=== PATIENT | male | born 1990 | race Caucasian/White ===

== ENCOUNTER → 2024-06-02 06:51 | Outpatient (REF) | payer OTHER, SELFPAY | LOC: RAD 06:51 | PROVIDERS: ATTENDING PHYSICIAN Nurse Practitioner Family; FAMILY PHYSICIAN Family Medicine | DX: R10.32 Left lower quadrant pain (principal); Z98.890 Other specified postprocedural states | CPT/HCPCS: 76882 ==

== ENCOUNTER → 2024-11-27 10:04 | Outpatient (REF) | payer OTHER, SELFPAY | LOC: RAD 10:04 | PROVIDERS: ATTENDING PHYSICIAN Internal Medicine Rheumatology; FAMILY PHYSICIAN Family Medicine | DX: L40.52 Psoriatic arthritis mutilans (principal); M54.50 Low back pain, unspecified; M79.641 Pain in right hand; M79.642 Pain in left hand | CPT/HCPCS: 72110; 72170; 73130 ==